=== PATIENT | female | born 1955 | race Caucasian/White ===

== ENCOUNTER 2017-11-30 07:48 | Emergency (ER) | payer OTHER ==
[~2017-11-30] VITALS: Ht 157.5 cm; Wt 81.6 kg
[2017-11-30 08:16] VITALS: Ht 157.5 cm; Wt 81.6 kg
[2017-11-30 09:05] VITALS: BP 128/75
== END 2017-11-30 10:27 | disposition home or self-care (01) ==
LOC: ED 07:48
DX: S39.012A Strain of muscle, fascia and tendon of lower back, initial encounter (principal); S16.1XXA Strain of muscle, fascia and tendon at neck level, initial encounter; V43.52XA Car driver injured in collision with other type car in traffic accident, initial encounter; Y93.I9 Activity, other involving external motion; Y92.89 Other specified places as the place of occurrence of the external cause; Y99.8 Other external cause status
CPT/HCPCS: J1885

== ENCOUNTER 2018-03-06 16:24 | Emergency (ER) | payer OTHER ==
[~2018-03-06] VITALS: Ht 157.5 cm; Wt 87.1 kg
[2018-03-06 16:26] VITALS: Ht 157.5 cm; Wt 87.1 kg
[2018-03-06 19:30] VITALS: BP 142/82
== END 2018-03-06 19:28 | disposition home or self-care (01) ==
LOC: ED 16:24
DX: M51.36 Other intervertebral disc degeneration, lumbar region (principal)
CPT/HCPCS: J1885; J3010; Q0162